=== PATIENT | male | born 1940 | race Two or more races ===

== ENCOUNTER 2024-06-22 11:52 | Emergency (ER) | payer OTHER ==
[~2024-06-22] VITALS: Ht 190.5 cm; Wt 92.5 kg
[2024-06-22] MEDS ORDERED: SYNTHROID150 MCG PO (13:58)
[2024-06-22] MEDS ORDERED: MELOXICAM15 MG PO (13:58)
[2024-06-22] MEDS ORDERED: ATORVASTATIN CA20 MG PO (13:58)
[2024-06-22] MEDS ORDERED: IRBESARTAN150 MG PO (13:58)
[2024-06-22] MEDS ORDERED: CETIRIZINE HCL10 MG PO (13:59)
[2024-06-22] MEDS ORDERED: FINASTERIDE5 MG PO (13:59)
[2024-06-22] MEDS ORDERED: XARELTO20 MG PO (13:59)
[2024-06-22] MEDS ORDERED: CABERGOLINE0.5 MG PO (13:59)
== END 2024-06-22 16:09 | disposition home or self-care (01) ==
LOC: ER 11:54
DX: S05.8X1A Other injuries of right eye and orbit, initial encounter (principal); W19.XXXA Unspecified fall, initial encounter; Y93.89 Activity, other specified; Y92.098 Other place in other non-institutional residence as the place of occurrence of the external cause; Y99.8 Other external cause status